=== PATIENT | female | born 1965 | race Caucasian/White ===

== ENCOUNTER 2016-12-14 11:02 | Outpatient (CLI) | payer OTHER ==
[2016-12-14 19:23] LABS: HCT - HEMATOCRIT 42.3 % (37.0-47.0); HGB - HEMOGLOBIN 13.9 g/dL (12.0-16.0); MONOCYTES # (AUTO) 0.4 10^3/uL (0.0-1.0)
[2016-12-14 19:25] LABS: BASOPHILS # (AUTO) 0.1 10^3/uL (0.0-0.1); BASOPHILS % (AUTO) 0.7 %; EOSINOPHILS # (AUTO) 0.1 10^3/uL (0.0-0.7); EOSINOPHILS % (AUTO) 1.7 %; LYMPHOCYTES # (AUTO) 2.7 10^3/uL (1.5-3.5); LYMPHOCYTES % (AUTO) 31.9 %; MEAN CORPUSCULAR HEMOGLOBIN 29.8 pg (27.0-31.0); MEAN CORPUSCULAR VOLUME 90.5 fL (81.0-99.0); MEAN PLATELET VOLUME 9.5 fL (7.9-10.8); MONOCYTES % (AUTO) 5.1 %; NEUTROPHILS # (AUTO) 5.1 10^3/uL (1.5-6.6); NEUTROPHILS % (AUTO) 60.6 %; RED BLOOD COUNT 4.67 10^6/uL (4.20-5.40); RED CELL DISTRIBUTION WIDTH 13.9 % (12.0-15.0); UNCORRECTED WHITE BLOOD COUNT 8.3 x10^3/uL; WHITE BLOOD COUNT 8.3 x10^3/uL (4.8-10.8)
[2016-12-14 19:38] LABS: ALBUMIN/GLOBULIN RATIO 1.1 (1.0-2.2); BILIRUBIN,TOTAL 0.6 mg/dL (0.2-1.0); CALCIUM 9.2 mg/dL (8.5-10.3); CREATININE 0.5 mg/dL (0.4-1.0); POTASSIUM 4.2 mmol/L (3.5-5.0); TOTAL PROTEIN 7.5 g/dL (6.7-8.2); URIC ACID 5.9 mg/dL (2.6-7.2)
== END 2016-12-14 11:03 | disposition home or self-care (01) ==
LOC: LAB.WCP 11:02
PROVIDERS: ATTEND Family Medicine
DX: M25.50 Pain in unspecified joint (principal)
CPT/HCPCS: 36415; 80053; 84550; 85025; 85651; 86038; 86140; 86200; 86430

== ENCOUNTER 2016-12-26 11:43 | Outpatient (CLI) | payer OTHER ==
--- NOTE | 2016-12-28 07:53 | Mammography Report ---
DIGITAL SCREENING MAMMOGRAM: 12/26/2016 CLINICAL INDICATION: A 51-year-old for screening. COMPARISON: Films from [place], [place] dated 03/02/2010, 02/08/2008. TECHNIQUE: Routine CC and MLO projections were obtained of the breasts. FINDINGS: The breasts again demonstrate fatty replacement bilaterally. Parenchymal asymmetry in the inner anterior right breast is stable. No suspicious masses, clustered microcalcifications, or rojelio ons of architectural distortion are identified. IMPRESSION: BENIGN FINDINGS. RECOMMENDATION: Routine annual screening unless otherwise clinically indicated. BIRADS CATEGORY 2 - BENIGN FINDINGS. STANDARD QUALIFYING STATEMENTS 1. This examination was reviewed with the aid of Computer-Aided Detection (CAD). 2. A negative or benign imaging report should not delay biopsy if clinically suspicious findings are present. Consider surgical consultation if warranted. More than 5% of cancers are not identified by i maging. 3. Dense breasts may obscure an underlying neoplasm. JOB #: [id number] EXT JOB #:[id number]
== END 2016-12-26 11:44 | disposition home or self-care (01) ==
LOC: DI.N 11:43
PROVIDERS: ATTEND Family Medicine
DX: Z12.31 Encounter for screening mammogram for malignant neoplasm of breast (principal)
CPT/HCPCS: 77067

== ENCOUNTER 2021-01-11 10:12 | Outpatient (CLI) | payer BC ==
--- NOTE | 2021-01-12 12:58 | Mammography Report ---
BILATERAL DIGITAL SCREENING MAMMOGRAM 3D/2D: 01/11/2021 CLINICAL: Routine screening. Comparison is made to exam dated: 12/26/2016 mammogram - [facility]. There are sca ttered fibroglandular elements in both breasts. No significant masses, calcifications, or other findings are seen in either breast. There has been no significant interval change. IMPRESSION: NEGATIVE There is no mammographic evidence of malignancy. A 1 year screening mammogram is recommended. This exam was interpreted at Station ID: [id number]. NOTE: For mammograms, a report in lay terms will be sent to the patient. Approximately 15% of breast malignancies will not be visualized mammographically. In the management of a palpable breast mass, a negative mammogram must not discourage biopsy of a clinically suspicious lesion. Electronically Signed By: Pete stacy/bhumika:01/11/2021 11:03:49 ACR BI-RADS Category 1: Negative 3341F PARENCHYMAL PATTERN: (A) - The breast(s) demonstrate(s) scattered fibroglandular densities. BI-RADS CATEGORY: (1) - 1 RECOMMENDATION: (ANNUAL) - Recommend routine annual screening mammography. [id number] 1 year screening LATERALITY: (B)
== END 2021-01-11 10:13 | disposition home or self-care (01) ==
LOC: DI.S 10:12
DX: Z12.31 Encounter for screening mammogram for malignant neoplasm of breast (principal)

== ENCOUNTER 2023-01-18 08:00 | Outpatient (CLI) | payer BC ==
[2023-01-18 18:32] LABS: FECAL OCCULT BLOOD (FIT) NEGATIVE (NEGATIVE)
== END 2023-01-18 23:59 | disposition home or self-care (01) ==
LOC: LAB.R 08:00
PROVIDERS: ATTEND Nurse Practitioner
DX: Z12.11 Encounter for screening for malignant neoplasm of colon (principal)
CPT/HCPCS: 82274

== ENCOUNTER 2023-02-06 09:40 | Outpatient (CLI) | payer BC ==
[2023-02-06 09:53] LABS: BASOPHILS # (AUTO) 0.1 10^3/uL (0.0-0.1); BASOPHILS % (AUTO) 0.6 %; EOSINOPHILS # (AUTO) 0.2 10^3/uL (0.0-0.7); EOSINOPHILS % (AUTO) 2.2 %; HCT - HEMATOCRIT 42.9 % (37.0-47.0); HGB - HEMOGLOBIN 14.5 g/dL (12.0-16.0); LYMPHOCYTES # (AUTO) 1.9 10^3/uL (1.5-3.5); LYMPHOCYTES % (AUTO) 24.7 %; MEAN CORPUSCULAR HEMOGLOBIN 30.7 pg (27.0-31.0); MEAN CORPUSCULAR HGB CONC 33.8 g/dL (32.0-36.0); MEAN CORPUSCULAR VOLUME 90.9 fL (81.0-99.0); MEAN PLATELET VOLUME 10.5 fL (7.9-10.8); MONOCYTES # (AUTO) 0.5 10^3/uL (0.0-1.0); MONOCYTES % (AUTO) 6.4 %; NEUTROPHILS # (AUTO) 5.2 10^3/uL (1.5-6.6); NEUTROPHILS % (AUTO) 65.8 %; PLT - PLATELET COUNT 291 10^3/uL (130-450); RED BLOOD COUNT 4.72 10^6/uL (4.20-5.40); RED CELL DISTRIBUTION WIDTH 12.9 % (12.0-15.0); WHITE BLOOD COUNT 7.9 x10^3/uL (4.8-10.8)
[2023-02-06 10:02] LABS: ESTIMATED AVERAGE GLUCOSE 117 mg/dL (70-100); HEMOGLOBIN A1c% 5.7 % (4.27-6.07)
[2023-02-06 10:06] LABS: ALBUMIN 4.4 g/dL (3.2-5.5); ALBUMIN/GLOBULIN RATIO 1.6 (1.0-2.2); ALKALINE PHOSPHATASE 112 IU/L (42-121); ALT ALANINE AMINOTRANSFERASE 18 IU/L (10-60); AST ASPARTATE AMINOTRANSFERASE 18 IU/L (10-42); BILIRUBIN,TOTAL 0.8 mg/dL (0.2-1.0); BUN - BLOOD UREA NITROGEN 13 mg/dL (6-20); CALCIUM 9.4 mg/dL (8.5-10.3); CARBON DIOXIDE - CO2 27 mmol/L (21-32); CHLORIDE 103 mmol/L (101-111); CHOL/HDL RATIO 2.8 (<4.4); CHOLESTEROL 143 mg/dL; CREATININE 0.6 mg/dL (0.6-1.3); GFR - MDRD 104 (>89); GLUCOSE 106 mg/dL (74-104); HDL CHOLESTEROL 51 mg/dL; LDL CHOLESTEROL,CALCULATED 62 mg/dL; LDL/HDL RATIO 1.2 (<4.4); POTASSIUM 4.1 mmol/L (3.5-4.5); SODIUM 137 mmol/L (135-145); TOTAL PROTEIN 7.1 g/dL (6.4-8.9); TRIGLYCERIDES 148 mg/dL (48-352); VLDL CHOLESTEROL 30 mg/dL
--- NOTE | 2023-02-06 11:57 | XRAY Report ---
PROCEDURE: Lumbar Spine Complete INDICATIONS: BACK PAIN, LUMBOSACRAL TECHNIQUE: 4 views of the lumbar spine were acquired. COMPARISON: None. FINDINGS: Bones: 5 hig-azx-oreyswn vertebrae are present. Mild levocurvature of the lumbar spine. Grade 1 ante rolisthesis of L4 on L5. Severe disc height loss at L4-L5 with degenerative endplate changes. Likely pars interarticularis defects at this level. Degenerative changes at T11-T12 with moderate severe dis c height loss and degenerative endplate changes with spurring. No vertebral body compression fracture s. No suspicious bony lesions. Soft tissues: Overlying bowel gas pattern is normal. No suspicious soft tissue calcifications. Rig ht upper quadrant surgical clips. IMPRESSION: Degenerative disease of the lumbar spine is worse at L4-L5 with grade 1 anterolisthesis and likely pars interarticularis defects. There is associated severe disc height loss with degenerati ve endplate changes. Reviewed by: Sahil Orozco MD on 02/06/2023 11:55 AM PDT Approved by: Sahil Orozco MD on 02/06/2023 11:55 AM PDT Station ID: [id number]
--- NOTE | 2023-02-06 12:03 | XRAY Report ---
PROCEDURE: Thoracic Spine 2 View INDICATIONS: THORACIC BACK PAIN TECHNIQUE: 3 views of the thoracic spine were acquired. COMPARISON: None. FINDINGS: Bones: No fractures or dislocations. No suspicious bony lesions. Minimal levocurvature of the thora cic spine, may be positional. 12 pairs of ribs are noted, and appear intact where visualized. Multil evel degenerative changes of the thoracic spine with disc height loss, endplate degenerative changes and marginal spurring. Soft tissues: No paravertebral stripe thickening. Right upper quadrant surgical clips. IMPRESSION: Multilevel degenerative changes of the thoracic spine. Reviewed by: Sahil Orozco MD on 02/06/2023 12:02 PM PDT Approved by: Sahil Orozco MD on 02/06/2023 12:02 PM PDT Station ID: [id number]
== END 2023-02-06 09:41 | disposition home or self-care (01) ==
LOC: DI 09:40
PROVIDERS: ATTEND Nurse Practitioner
DX: M47.814 Spondylosis without myelopathy or radiculopathy, thoracic region (principal); M47.816 Spondylosis without myelopathy or radiculopathy, lumbar region; M43.16 Spondylolisthesis, lumbar region; M51.36 Other intervertebral disc degeneration, lumbar region; Z13.220 Encounter for screening for lipoid disorders; Z51.81 Encounter for therapeutic drug level monitoring; E66.9 Obesity, unspecified; F32.9 Major depressive disorder, single episode, unspecified
CPT/HCPCS: 36415; 80053; 80061; 83036; 83721; 84443; 85025

== ENCOUNTER 2023-07-01 14:21 | Outpatient (CLI) | payer BC ==
--- NOTE | 2023-07-03 16:53 | MRI Report ---
PROCEDURE: LUMBAR SPINE WO INDICATIONS: LUMBAR RADICULOPATHY TECHNIQUE: Noncontrast sagittal T1 spin echo and T2 fast echo, sagittal STIR, axial T1 and T2 fast spin echo thr ough the lumbar spine. In cases with scoliosis, additional coronal T2 fast spin echo may be performe d. COMPARISON: X-ray lumbar spine 02/07/2020 FINDINGS: Image quality: Excellent. Alignment and Curvature: There is 6 mm anterolisthesis of L4 on L5. Bone Marrow: Marrow is of normal overall signal. Increased T1 and T2 signal are present L2 most sug gestive of hemangioma. No acute vertebral body compression fractures. Spinal Cord: Conus medullaris terminates at the L1 level. Visualized cord demonstrates normal signa l and size. Paraspinous Soft Tissues: No paravertebral masses. Discs Moderate desiccation is present at L4-5. T12-L1: No disc bulge, spinal stenosis or foraminal narrowing. L1-L2: No disc bulge, spinal stenosis or foraminal narrowing. L2-L3: Minimal disc bulge without spinal stenosis. Mild bilateral foraminal narrowing with facet a nd ligamentum flavum hypertrophy. L3-L4: Mild disc bulge with mild spinal stenosis. Mild right foraminal narrowing with facet and lig amentum flavum hypertrophy. L4-L5: Mild disc bulge with moderate spinal stenosis. Severe bilateral foraminal narrowing, right g reater than left with compression of exiting right L4 nerve roots. Significant facet and ligamentum f lavum hypertrophy are present. Secondary to extensive facet hypertrophy, determination of pars defect or more likely partial fusion is difficult to determine. L5-S1: Minimal disc bulge without spinal stenosis or foraminal narrowing. IMPRESSION: Multilevel degenerative changes most severe at L4-5 with grade 1 anterolisthesis. There is questionab le partial fusion versus pars defect at this level. However, it is difficult to definitively ascertai n secondary to significant arthritic change. CT is recommended for further evaluation. Reviewed by: Rosie Bertrand MD on 07/03/2023 4:52 PM PST Approved by: Rosie Bertrand MD on 07/03/2023 4:52 PM PST Station ID: [id number]
== END 2023-07-01 14:22 | disposition home or self-care (01) ==
LOC: DI 14:21
PROVIDERS: ATTEND Nurse Practitioner
DX: M47.27 Other spondylosis with radiculopathy, lumbosacral region (principal); M47.26 Other spondylosis with radiculopathy, lumbar region; M43.17 Spondylolisthesis, lumbosacral region

== ENCOUNTER 2023-08-07 11:02 | Outpatient (CLI) | payer BC ==
--- NOTE | 2023-08-07 12:39 | CT Report ---
PROCEDURE: Lumbar Spine WO INDICATIONS: ABN MRI TECHNIQUE: Noncontrast 3 mm thick sections acquired from the T12 level to the sacrum. Sagittal and coronal refo rmats were constructed. For radiation dose reduction, the following was used: automated exposure co ntrol, adjustment of mA and/or kV according to patient size. COMPARISON: Prior lumbar MRI, 07/01/2023. Prior lumbar plain films, 02/06/2023. FINDINGS: Image quality: Excellent. Bones: No acute vertebral body compression fractures. No suspicious lytic or blastic bony lesions. Central spinal caliber is of normal overall caliber. No pars defects. Moderate degenerative changes can be seen involving the visualized lower thoracic spine. T12-L1: Normal in appearance. L1-L2: Normal in appearance. L2-L3: No significant abnormality is seen. Moderate loss of disc height is seen. L3-L4: Moderate disc bulge is seen, which is eccentric to the left. There is mild right-sided and m oderate left-sided facet hypertrophy. There is minimal right-sided and mild to moderate left-sided ne uroforaminal narrowing. Mild central canal narrowing is seen. L4-L5: Grade 1 anterolisthesis is seen at this level. No associated pars defects are seen. At least moderate loss of disc height is seen. Endplate irregularity and sclerosis can be seen. Moderate t o prominent facet hypertrophy can be seen. Moderate to severe bilateral neuroforaminal narrowing can be seen. At least moderate central canal narrowing is seen. L5-S1: The disc height is relatively well preserved. Mild disc bulge is seen. Mild facet hypert rophy is seen. No significant neural foraminal or central canal narrowing can be seen. Soft tissues: No retroperitoneal masses or hematomas. Visualized aorta is normal in caliber. Lisa cystectomy clips are seen. Minimal distal colonic diverticulosis is seen, without findings of active diverticulitis. IMPRESSION: Focal L4-L5 degenerative change again seen. Grade 1 anterolisthesis is seen at L4-L5, without associated pars defects. Reviewed by: Alejandro Gibson MD on 08/07/2023 11:38 AM [place] Approved by: Alejandro Gibson MD on 08/07/2023 11:38 AM [facility] Station ID: [id number]
== END 2023-08-07 11:03 | disposition home or self-care (01) ==
LOC: DI 11:02
PROVIDERS: ATTEND Nurse Practitioner
DX: M47.816 Spondylosis without myelopathy or radiculopathy, lumbar region (principal); M47.817 Spondylosis without myelopathy or radiculopathy, lumbosacral region; M43.16 Spondylolisthesis, lumbar region; M51.36 Other intervertebral disc degeneration, lumbar region; M48.061 Spinal stenosis, lumbar region without neurogenic claudication; M51.37 Other intervertebral disc degeneration, lumbosacral region

== ENCOUNTER 2023-09-03 08:08 | Emergency (ER) | payer BC ==
[2023-09-03 08:30] VITALS: BP 148/88; O2SAT 95
--- NOTE | 2023-09-03 08:50 | ED Physician Documentation ---
PD HPI BACK PAIN - Stated complaint Stated Complaint: WEAK,BACK PX - Chief complaint Chief Complaint: Back Pain - History obtained from History obtained from: Patient - History of Present Illness Timing - onset: Chronic Pain level max: 10 Pain level now: 5 Location: Lower Quality: Pain, Spasm, Similar to prior episodes Associated symptoms: No: Fever, Weakness, Numbness, Incontinent of urine, Unable to urinate, Hematuria, Incontinent of stool Contributing factors: No: Lifting, Twisting, Trauma, Anticoagulated, Cancer, IVDA Recently seen: Not recently seen - Additional information Additional information: Patient is a 58-year-old female with ongoing low back pain. Has been ongoing for several months. Is awaiting a referral to a pain clinic on Monday. She is also going to start physical therapy. States that she has a slipped disc in her back. This morning she was having increased back pain, took her Vicodin and normal medications and the pain is now improving. She states usually steroids help, but she is not currently on prednisone. No new weakness, numbness, incontinence of urine. Worse with movement better with rest. 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: Tubal ligation - Present Medications Home Medications: Ambulatory Orders Medication Instructions Recorded Confirmed Clonazepam 1 mg PO DAILY 03/27/13 09/03/23 DULoxetine [Cymbalta] 60 mg PO DAILY 03/27/13 09/03/23 HYDROcod/ACETAM 5/325 [Vicodin 1 - 2 ea PO Q6H PRN 03/27/13 09/03/23 5/325] Meloxicam [Mobic] 7.5 mg PO DAILY 03/27/13 09/03/23 carvediloL [Coreg] 6.25 mg PO DAILY 09/03/23 09/03/23 predniSONE [Deltasone] 40 mg PO DAILY #10 tablet 09/03/23 - Allergies Allergies/Adverse Reactions: Allergies Allergy/AdvReac Type Severity Reaction Status Date / Time No Known Drug Allergies Allergy Verified 09/03/23 08:25 - Social History Does the pt smoke?: No Smoking Status: Never smoker Does the pt drink ETOH?: Yes Does the pt have substance abuse?: Yes - Immunizations Immunizations are current?: No Immunizations: TDAP current <10years PD ED PE NORMAL - Vitals Vital signs reviewed: Yes - General General: Alert and oriented X 3, No acute distress - HEENT HEENT: Moist mucous membranes - Neck Neck: Supple, no meningeal sign - Respiratory Respiratory: No respiratory distress - Back Back: No spinal TTP (T/L spines No midline tenderness to palpation or percussion. No step-off or deformity.) - Derm Derm: Warm and dry - Extremities Extremities: No edema, No calf tenderness / cord, Other (Normal bilateral lower extremity patellar and ankle jerk reflexes. Normal great toe extension bilaterally. no saddle anesthesia) - Neuro Neuro: Alert and oriented X 3, No motor deficit, No sensory deficit - Psych Psych: Normal mood, Normal affect Results - Vitals Vitals: Vital Signs - 24 hr 09/03/23 08:22 Temperature 36.4 C L Heart Rate 70 Respiratory 16 Rate Blood Pressure 148/88 H O2 Saturation 95 Oxygen O2 Source Room air PD Medical Decision Making - ED course Complexity details: considered differential (No cauda equina, no spinal epidural abscess, no fracture, no aortic dissection or evidence of aneursym rupture), d/w patient ED course: 58-year-old female presents to the emergency department with acute on chronic low back pain. She has pain medication and muscle relaxants at home. She is here requesting steroids. Given dexamethasone [address] also place her on prednisone 40 mg to start tomorrow. Will have her follow-up with her PCP for further care. No evidence of cauda equina, epidural abscess. No focal neurological deficits. No indication for emergent imaging. Patient counseled regarding signs and symptoms for which I believe and urgent re-evaluation would be necessary. Patient with good understanding of and agreement to plan and is comfortable going home at this time This document was made in part using voice recognition software. While efforts are made to proofread this document, sound alike and grammatical errors may occur. Departure - Departure Disposition: 01 Home, Self Care Clinical Impression: Back pain Qualifiers: Back pain location: low back pain Chronicity: acute Back pain laterality: bilateral Sciatica presence: without sciatica Qualified Code(s): M54.50 - Low back pain, unspecified Condition: Good Instructions: ED Neck Back Pain General Follow-Up: Clara Garrison ARNP [Primary Care Provider] - Within 1 week Prescriptions: predniSONE [Deltasone] 40 mg PO DAILY #10 tablet Comments: Your prescriptions were sent to [facility] in [place]. You were given a dose of dexamethasone here. You can start the prednisone tomorrow. Continue your current medications at home. Please return if you worsen.
[2023-09-03] MEDS: DEXAMETHASONE 10 MG/ML VIAL PO STA (09:09)
== END 2023-09-03 09:30 | disposition home or self-care (01) ==
LOC: ED 08:08
DX: M54.50 Low back pain, unspecified (principal); G89.29 Other chronic pain
CPT/HCPCS: 99282; 99284

== ENCOUNTER 2023-09-20 13:17 | Outpatient (CLI) | payer BC ==
--- NOTE | 2023-09-21 09:10 | Mammography Report ---
BILATERAL DIGITAL SCREENING MAMMOGRAM 3D/2D: 09/20/2023 CLINICAL: Routine screening. Comparison is made to exams dated: 01/11/2021 mammogram and 12/26/2016 mammogram - [facility]. Both breasts are almost entirely fatty (category a/<25% glandular tissue). There are benign calcifications in both breasts. No significant masses, calcifications, or other findings are seen in either breast. There has been no significant interval change. IMPRESSION: BENIGN There is no mammographic evidence of malignancy. A 1 year screening mammogram is recommended. Based on the Tyrer Cuzick model (a risk assessment model) the patient's lifetime risk is 4.1% and her 10 year risk is 1.3%. According to the ACR, ACS, and NCCN guidelines, an annual breast MRI exam demetrio g with mammogram is recommended if the patient's lifetime risk is 20% or greater. This exam was interpreted at Station ID: [id number]. NOTE: For mammograms, a report in lay terms will be sent to the patient. Approximately 15% of breast malignancies will not be visualized mammographically. In the management of a palpable breast mass, a negative mammogram must not discourage biopsy of a clinically suspicious lesion. Electronically Signed By: Cecille alvarez/bhumika:09/20/2023 16:30:07 letter sent: No_Letter ACR BI-RADS Category 2: Benign Finding(s) 3342F PARENCHYMAL PATTERN: (F) - The breast(s) demonstrate(s) diffuse fatty replacement. BI-RADS CATEGORY: (2) - 2 RECOMMENDATION: (ANNUAL) - Recommend routine annual screening mammography. [id number] 1 year screening LATERALITY: (B)
== END 2023-09-20 13:18 | disposition home or self-care (01) ==
LOC: DI 13:17
PROVIDERS: ATTEND Nurse Practitioner
DX: Z12.31 Encounter for screening mammogram for malignant neoplasm of breast (principal)

== ENCOUNTER 2023-09-29 08:37 | Emergency (ER) | payer BC ==
[2023-09-29 08:43] VITALS: BP 153/80; O2SAT 100
--- NOTE | 2023-09-29 08:56 | ED Physician Documentation ---
PD HPI BACK PAIN - Stated complaint Stated Complaint: LOWER BACK PX - Chief complaint Chief Complaint: Back Pain - History obtained from History obtained from: Patient - History of Present Illness Timing - onset: How many days ago (has had ongoing back pain due to herniated disc shown on MRI. Has pain clinic input/meds and is seeing Anest/pain management person next week. Had been on steroids for bakc with improvement. is out of steroids for few days.) Timing - details: Gradual onset, Waxing and waning (has had increased pain the past few weeks. Getting disc injection next week, already scheduled.) Location: Lower, Left Quality: Pain, Spasm, Aching Associated symptoms: Numbness. No: Fever, Weakness, Incontinent of urine Improves with: No: Rest, Meds (has meds from pain clinic of NSAID, robaxin, neurontin, TYlneol and PRN hydrocodone. 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 - Present Medications Home Medications: Ambulatory Orders Medication Instructions Recorded Confirmed Clonazepam 1 mg PO DAILY 03/27/13 09/29/23 DULoxetine [Cymbalta] 60 mg PO DAILY 03/27/13 09/29/23 HYDROcod/ACETAM 5/325 [Vicodin 1 - 2 ea PO Q6H PRN 03/27/13 09/29/23 5/325] Meloxicam [Mobic] 7.5 mg PO DAILY 03/27/13 09/29/23 carvediloL [Coreg] 6.25 mg PO DAILY 09/03/23 09/29/23 predniSONE [Deltasone] 40 mg PO DAILY #10 tablet 09/03/23 09/29/23 Gabapentin [Neurontin] 300 mg PO BID 09/29/23 09/29/23 Lidocaine Patch 5% [Lidoderm Patch] 1 patch TOP DAILY PRN #10 patch 09/29/23 predniSONE [Deltasone] 20 mg PO DAILY #7 tab 09/29/23 - Allergies Allergies/Adverse Reactions: Allergies Allergy/AdvReac Type Severity Reaction Status Date / Time No Known Drug Allergies Allergy Verified 09/29/23 08:42 - Social History Does the pt smoke?: No Smoking Status: Never smoker Does the pt drink ETOH?: Yes Does the pt have substance abuse?: Yes - Immunizations Immunizations are current?: No Immunizations: TDAP current <10years PD ED PE NORMAL - Vitals Vital signs reviewed: Yes - General General: Alert and oriented X 3, Well developed/nourished, Other (appears in keiko and some guarded ORM of the lower back. ) - Back Back: No CVA TTP, No spinal TTP, Other (tender left lateral lumbar and SI area without focal trigger point per se. ) - Derm Derm: Normal color, Warm and dry, No rash - Neuro Neuro: No motor deficit, No sensory deficit Results - Vitals Vitals: Vital Signs - 24 hr 09/29/23 08:40 Temperature 36.2 C L Heart Rate 67 Respiratory 16 Rate Blood Pressure 153/80 H O2 Saturation 100 Oxygen O2 Source Room air PD Medical Decision Making - ED course Complexity details: considered differential, d/w patient ED course: she is comfortable with current level of pain meds orally, but does feel much improved when back is treated lately with steroids Prednisone 20 mg daily. Gave decadron 10 mg IM here. Departure - Departure Disposition: 01 Home, Self Care Clinical Impression: Low back pain, Sciatic nerve pain, Lumbar disc disease Condition: Stable Record reviewed to determine appropriate education?: Yes Instructions: ED Sciatica Follow-Up: JAHAIRA MARVIN ARNP [Physician No Access] - LEONIDES GATES MD [Physician No Access] - GITA CLAROS DO [Physician No Access] - Prescriptions: predniSONE [Deltasone] 20 mg PO DAILY #7 tab Lidocaine Patch 5% [Lidoderm Patch] 1 patch TOP DAILY PRN #10 patch PRN Reason: pain Comments: Dr. Gates looks to be anesthesiologist with a specialty in pain management and injections/ nerve blocks. That makes sense he would be doing the spine injection but would not be the surgeon etc. if it needs ultimate surgical repair. We did give you an injection of a steroid here called dexamethasone which absorbs well. I then prescribed the prednisone 20 mg daily and sent it to your preferred pharmacy. Continue with your other usual treatments. I did also prescribe some lidocaine patches that you could try in addition to see if there is some incremental benefit from them as well. Discharge Date/Time: 09/29/23 10:12
[2023-09-29] MEDS: ACETAMINOPHEN 325 MG TABLET PO STA (10:05)
[2023-09-29] MEDS: DEXAMETHASONE 10 MG/ML VIAL IM STA (10:05)
== END 2023-09-29 10:12 | disposition home or self-care (01) ==
LOC: ED 08:37
DX: M54.40 Lumbago with sciatica, unspecified side (principal)
CPT/HCPCS: 96372; 99283; 99284; A9270

== ENCOUNTER 2023-10-25 12:17 | Outpatient (CLI) | payer BC ==
--- NOTE | 2023-10-25 19:47 | XRAY Report ---
PROCEDURE: Lumbar Spine 2-3V INDICATIONS: BACK AND HIP PAIN TECHNIQUE: 3 view(s) of the lumbar spine were acquired. COMPARISON: 02/06/2023 FINDINGS: Bones: Normal bone mineralization. Disc space narrowing and hypertrophic facet joints noted in the lower lumbar spine as well as at the thoracolumbar junction, particularly worse at L4-5. Grade 2 anterior spinal listhesis of L4 over L5 i s worse than prior exam , now measuring 1.6 cm, previously 1.2 cm. Soft tissues: Overlying bowel gas pattern is normal. No suspicious soft tissue calcifications. IMPRESSION: Worsening grade 2 L4-5 degenerative spondylolisthesis Reviewed by: Uriel Sadler MD on 10/25/2023 6:46 PM [facility]DT Approved by: Uriel Sadler MD on 10/25/2023 6:46 PM [facility]DT Station ID: [id number]
--- NOTE | 2023-10-25 19:49 | XRAY Report ---
PROCEDURE: Sacrum/Coccyx INDICATIONS: BACK AND HIP PAIN TECHNIQUE: 2 views of the sacrum and coccyx acquired. COMPARISON: None. FINDINGS: Bones: No fractures or dislocations. No suspicious bony lesions. Lower lumbar spine degenerative c hanges Soft tissues: Visualized bowel gas pattern is normal. No suspicious soft tissue densities. IMPRESSION: Unremarkable sacrococcygeal radiographs. Degenerative changes include grade 2 anterior spondylolisthe sis further described on concurrent lumbar spine Reviewed by: Uriel Sadler MD on 10/25/2023 6:48 PM [facility]DT Approved by: Uriel Sadler MD on 10/25/2023 6:48 PM AKDT Station ID: [id number]
== END 2023-10-25 12:18 | disposition home or self-care (01) ==
LOC: DI 12:17
PROVIDERS: ATTEND Nurse Practitioner
DX: M25.552 Pain in left hip (principal); M43.16 Spondylolisthesis, lumbar region